=== PATIENT | female | born 2000 | race Two or more races ===

== ENCOUNTER 2022-03-22 16:28 | Emergency (ER) | payer OTHER ==
[~2022-03-22] VITALS: Ht 175.3 cm; Wt 61.2 kg
== END 2022-03-22 18:08 | disposition left against medical advice (07) ==
LOC: ER 16:28
DX: Z53.21 Procedure and treatment not carried out due to patient leaving prior to being seen by health care provider (principal)

== ENCOUNTER 2023-05-17 11:00 | Day surgery (SDC) | payer OTHER ==
[2023-05-15 10:44] LABS: PH,URINE 5.5 (5.0-8.0); URINE APPEARANCE Clear; URINE BILIRRUBIN Negative (NEGATIVE); URINE BLOOD Negative; URINE COLOR Yellow; URINE GLUCOSE Negative (NEGATIVE); URINE LEUKOCYTE Negative; URINE NITRATE Negative; URINE PROTEIN Negative (NEGATIVE)
[2023-05-15 10:45] LABS: HEMATOCRIT 39.3 % (36.0-45.00); MEAN CELL VOLUME 92.4 fL (80.00-100.00); MEAN CORPUSCULAR HEMOGLOBIN 30.7 pg (27.00-32.0); MEAN CORPUSCULAR HGB CONC 33.2 g/dl (32.0-36.0); PLATELET COUNT 274 K/uL (150-450); RED BLOOD COUNT 4.25 M/uL (4.00-6.00); RED CELL DISTRIBUTION WIDTH 13.3 % (11.5-14.5); URINE BACTERIA 889.5 uL (0.0-1933); URINE EPITHELIAL CELLS 17.4 uL (0.0-38.8); URINE RBC 18.1 uL (0.0-20.8)
[2023-05-15 11:25] LABS: INR 1.04; PARTIAL THROMBOPLASTIN TIME 25.5 SECONDS (22.0-34.0); PROTHROMBIN TIME 10.9 SECONDS (9.0-11.5)
[2023-05-15 11:27] LABS: CALCIUM 9.2 mg/dL (8.5-10.1); CREATININE SERUM 0.75 mg/dL (0.55-1.02); GFR 94.94; POTASSIUM 3.64 mEq/L (3.5-5.1)
[2023-05-17] MEDS ORDERED: KETO10TA2 PO (13:24)
[2023-05-17] MEDS ORDERED: TRAMADOL HCL50 MG PO (13:24)
[2023-05-17] MEDS ORDERED: MIRALAX17 GM PO (13:24)
[2023-05-17] MEDS ORDERED: TYLENOL ARTHRI650 MG PO (13:24)
== END 2023-05-17 16:15 | disposition home or self-care (01) ==
LOC: CIR.AMB 11:00
PROVIDERS: ATTEND Surgery
DX: K42.0 Umbilical hernia with obstruction, without gangrene (principal); I10 Essential (primary) hypertension; Z20.822 Contact with and (suspected) exposure to COVID-19

== ENCOUNTER 2024-04-14 19:10 | Emergency (ER) | payer OTHER ==
[~2024-04-14] VITALS: Ht 162.6 cm; Wt 56.7 kg
[~2024-04-14 19:10] MED LIST: KETO10TA2 PO; MIRALAX17 GM PO; TRAMADOL HCL50 MG PO; TYLENOL ARTHRI650 MG PO
[2024-04-15] MEDS ORDERED: KETOROLAC TROMETHAMINE 60 MG VIAL IM STA (04:55)
== END 2024-04-15 05:17 | disposition home or self-care (01) ==
LOC: ER 19:12
DX: S93.491A Sprain of other ligament of right ankle, initial encounter (principal); W10.0XXA Fall (on)(from) escalator, initial encounter; Y93.89 Activity, other specified; Y92.018 Other place in single-family (private) house as the place of occurrence of the external cause